=== PATIENT | male | born 1935 | race African-American/Black ===

== ENCOUNTER 2021-03-31 11:26 | Inpatient (IN) | payer MEDICARE ==
[2021-03-31 12:15] LABS: #Basophils 0.1 thou/uL (0.0-0.2); #Eosinphils 0.1 thou/uL (0.0-0.7); #Lymphocytes 1.5 thou/uL (1.20-3.40); #Monocytes 0.6 thou/uL (0.11-0.59); #Neutrophils 2.3 thou/uL (1.40-6.50); %Basophils 1.2 % (0.0-1.0); %Eosinophils 1.9 % (0.0-10.0); %Lymphocytes 32.6 % (21.0-51.0); %Monocytes 13.9 % (0.0-10.0); %Neutrophils 50.4 % (42.0-75.0); Hemoglobin 10.4 g/dL (14.0-18.0); Mean Corpuscular HGB CONC 34.2 g/dL (32.0-36.0); Mean Corpuscular Hemoglobin 30.9 pg (27.0-31.0); Mean Corpuscular Volume 90.3 fL (78.0-98.0); Platelet Count 160 thou/uL (130-400); RBC Distribution Width 13.2 % (11.5-14.5); Red Blood Cell (RBC) Count 3.38 mill/uL (4.70-6.10); White Blood Cell (WBC) Count 4.6 thou/uL (4.8-10.8)
[2021-03-31 12:33] LABS: ALT (SGPT) 11 U/L (8-55); AST (SGOT) 19 U/L (5-34); Albumin 3.8 g/dL (3.4-4.8); Alkaline Phosphatase 50 U/L (40-110); Anion Gap 14 mmol/L (10-20); BUN (Urea Nitrogen) 29 mg/dL (8.4-25.7); Bilirubin, Total 0.7 mg/dL (0.2-1.2); Calc. Creatinine Clearance 0 mL/min (70-130); Calcium 9.4 mg/dL (7.8-10.44); Carbon Dioxide 24 mmol/L (23-31); Chloride 105 mmol/L (98-107); Globulin 3.4 g/dL (2.4-3.5); Glucose 100 mg/dL (83-110); Potassium 3.7 mmol/L (3.5-5.1); Protein, Total 7.2 g/dL (5.8-8.1); Sodium 139 mmol/L (136-145)
[2021-03-31] MEDS ORDERED: Ondansetron PF 4 MG/2 ML Vial IVP PRN (14:11)
[2021-03-31 17:47] VITALS: BMI 30.2
[2021-03-31 18:26] LABS: Troponin I 0.015 ng/mL (< 0.028)
[2021-03-31 19:08] LABS: Bacteria/HPF None Seen HPF (None Seen); Bilirubin Negative (Negative); Blood, Urine Negative (Negative); Clarity Clear (Clear); Glucose, Urine (Dipstick) Normal (Negative); Ketone, Urine Negative (Negative); Leukocyte Negative Leu/uL (Negative); Nitrite Negative (Negative); Protein, Urine (Dipstick) Negative (Neg-Trace); RBC/HPF 0-3 HPF (0-3); Specific Gravity, Urine 1.016 (1.002-1.036); Squamous Epithelial None Seen HPF (0-3); WBC/HPF 0-3 HPF (0-3)
[2021-03-31 19:09] LABS: Urine Culture Reflex No No
[2021-03-31 19:16] LABS: Amphetamine Not Detected (NotDetected); Barbiturates Screen Not Detected (NotDetected); Benzodiazepine Screen Not Detected (NotDetected); Cocaine Metabolite Screen Not Detected (NotDetected); Medtox Control Line Valid? VALID (VALID); Medtox Reader # READER 4; Methadone Not Detected (NotDetected); Methamphetamine Not Detected (NotDetected); Opiate Screen Not Detected (NotDetected); Oxycodone Screen Not Detected (NotDetected); Phencyclidine (PCP) Not Detected (NotDetected); THC/Cannabinoid Screen Not Detected (NotDetected); Tricyclic Screen Not Detected (NotDetected)
[2021-03-31] MEDS ORDERED: Amlodipine 5 MG TAB PO SCH (19:30)
[2021-03-31] MEDS: Lisinopril 10 MG TAB PO SCH (21:50)
[2021-03-31 22:02] LABS: SARS-CoV-2 PCR by NAA Not Detected (NotDetected)
[2021-04-01 04:54] LABS: #Basophils 0.1 thou/uL (0.0-0.2); #Eosinphils 0.1 thou/uL (0.0-0.7); #Lymphocytes 1.6 thou/uL (1.20-3.40); #Monocytes 0.7 thou/uL (0.11-0.59); #Neutrophils 2.5 thou/uL (1.40-6.50); %Eosinophils 1.7 % (0.0-10.0); %Lymphocytes 32.4 % (21.0-51.0); %Monocytes 14.7 % (0.0-10.0); %Neutrophils 50.1 % (42.0-75.0); Hemoglobin 10.6 g/dL (14.0-18.0); Mean Corpuscular Volume 90.9 fL (78.0-98.0); Mean Platelet Volume 10.4 fL (7.4-10.4); Platelet Count 151 thou/uL (130-400); RBC Distribution Width 13.3 % (11.5-14.5); Red Blood Cell (RBC) Count 3.53 mill/uL (4.70-6.10); White Blood Cell (WBC) Count 4.9 thou/uL (4.8-10.8)
[2021-04-01 05:28] LABS: Anion Gap 11 mmol/L (10-20); BUN (Urea Nitrogen) 29 mg/dL (8.4-25.7); Calc. Creatinine Clearance 72 mL/min (70-130); Calcium 9.8 mg/dL (7.8-10.44); Carbon Dioxide 25 mmol/L (23-31); Chloride 107 mmol/L (98-107); Glucose 149 mg/dL (83-110); Potassium 3.7 mmol/L (3.5-5.1); Sodium 139 mmol/L (136-145)
[2021-04-01 08:29] LABS: Cardiac Risk 2.3 (Less than 4.5)
[2021-04-01] MEDS: Aspirin Chewable 81 MG TAB PO SCH (08:49)
[2021-04-01] MEDS: Amlodipine 5 MG TAB PO SCH (08:50)
[2021-04-01] MEDS: Lisinopril 10 MG TAB PO SCH ×2 (08:50→20:36)
[2021-04-01] MEDS: Allopurinol 300 MG TAB PO SCH (08:50)
[2021-04-01] MEDS ORDERED: Enoxaparin Sodium 40 MG/0.4 ML SYRINGE SC SCH (09:00)
[2021-04-01] MEDS: Rosuvastatin 10 MG TAB PO SCH (20:36)
[2021-04-02 05:08] LABS: Anion Gap 12 mmol/L (10-20); BUN (Urea Nitrogen) 23 mg/dL (8.4-25.7); Calc. Creatinine Clearance 75 mL/min (70-130); Calcium 9.3 mg/dL (7.8-10.44); Carbon Dioxide 24 mmol/L (23-31); Chloride 106 mmol/L (98-107); Glucose 179 mg/dL (83-110); Hemoglobin 10.5 g/dL (14.0-18.0); Mean Corpuscular HGB CONC 33.4 g/dL (32.0-36.0); Mean Corpuscular Hemoglobin 30.4 pg (27.0-31.0); Mean Platelet Volume 10.2 fL (7.4-10.4); Platelet Count 146 thou/uL (130-400); Potassium 3.6 mmol/L (3.5-5.1); RBC Distribution Width 13.3 % (11.5-14.5); Red Blood Cell (RBC) Count 3.45 mill/uL (4.70-6.10); Sodium 138 mmol/L (136-145); White Blood Cell (WBC) Count 5.3 thou/uL (4.8-10.8)
[2021-04-02 06:04] LABS: Band 2 % (5-11); Eosinophils 2 % (0-10); Lymphocytes 14 % (21-51); MDiff Complete? YES; Monocytes 12 % (0-10); Neutrophil 70 % (42-75)
[2021-04-02] MEDS: Enoxaparin Sodium 40 MG/0.4 ML SYRINGE SC SCH (09:20)
[2021-04-02] MEDS: Allopurinol 300 MG TAB PO SCH (09:20)
[2021-04-02] MEDS: Amlodipine 5 MG TAB PO SCH (09:20)
[2021-04-02] MEDS: Lisinopril 10 MG TAB PO SCH ×2 (09:20→21:50)
[2021-04-02] MEDS: Aspirin Chewable 81 MG TAB PO SCH (09:20)
[2021-04-02] MEDS ORDERED: Magnesium Sulfate 4 GM in Sodium Chloride 0.9% 250 ML 250 ML IVPB SCH (16:45)
[2021-04-02] MEDS: Rosuvastatin 10 MG TAB PO SCH (21:50)
[2021-04-03 04:28] LABS: Hemoglobin 10.5 g/dL (14.0-18.0); Mean Corpuscular HGB CONC 32.7 g/dL (32.0-36.0); Mean Corpuscular Hemoglobin 29.8 pg (27.0-31.0); Mean Corpuscular Volume 91.1 fL (78.0-98.0); Platelet Count 146 thou/uL (130-400); RBC Distribution Width 13.3 % (11.5-14.5); Red Blood Cell (RBC) Count 3.52 mill/uL (4.70-6.10); White Blood Cell (WBC) Count 4.9 thou/uL (4.8-10.8)
[2021-04-03 04:43] LABS: Anion Gap 12 mmol/L (10-20); BUN (Urea Nitrogen) 18 mg/dL (8.4-25.7); Calc. Creatinine Clearance 81 mL/min (70-130); Calcium 9.3 mg/dL (7.8-10.44); Carbon Dioxide 24 mmol/L (23-31); Chloride 104 mmol/L (98-107); Glucose 141 mg/dL (83-110); Magnesium 1.8 mg/dL (1.6-2.6); Potassium 3.7 mmol/L (3.5-5.1); Sodium 136 mmol/L (136-145)
[2021-04-03 05:12] LABS: Band 1 % (5-11); Eosinophils 4 % (0-10); Lymphocytes 23 % (21-51); MDiff Complete? YES; Monocytes 12 % (0-10); Neutrophil 59 % (42-75); Reactive Lymphocytes 1 % (0-10)
[2021-04-03] MEDS ORDERED: Magnesium 2 GM/50 ML 2 GM in Premix Bag 1 BAG IVPB SCH (07:15)
[2021-04-03] MEDS: Enoxaparin Sodium 40 MG/0.4 ML SYRINGE SC SCH (10:02)
[2021-04-03] MEDS: Lisinopril 10 MG TAB PO SCH ×2 (10:02→20:49)
[2021-04-03] MEDS: Allopurinol 300 MG TAB PO SCH (10:02)
[2021-04-03] MEDS: Potassium Chloride 20 MEQ TAB PO SCH ×2 (10:02→16:42)
[2021-04-03] MEDS: Amlodipine 5 MG TAB PO SCH (10:02)
[2021-04-03] MEDS: Aspirin Chewable 81 MG TAB PO SCH (10:02)
[2021-04-03] MEDS: Rosuvastatin 10 MG TAB PO SCH (20:49)
[2021-04-03] MEDS ORDERED: Enoxaparin Sodium 40 MG/0.4 ML SYRINGE SC SCH (23:00)
[2021-04-04] MEDS ORDERED: CEFAZOLIN 2 GM in Premix Bag 1 BAG IVPB SCH (04:00)
[2021-04-04] MEDS: Amlodipine 5 MG TAB PO SCH (08:28)
[2021-04-04] MEDS: Lisinopril 10 MG TAB PO SCH ×2 (08:28→20:30)
[2021-04-04] MEDS: Aspirin Chewable 81 MG TAB PO SCH (08:29)
[2021-04-04] MEDS: Allopurinol 300 MG TAB PO SCH (08:29)
[2021-04-04] MEDS ORDERED: CEFAZOLIN 1 GM VIAL ONE (09:51)
[2021-04-04] MEDS ORDERED: Gentamicin 80 MG/2 ML VIAL ONE (09:51)
[2021-04-04] MEDS: Acetaminophen 325 MG TAB PO PRN ×3 (12:58→23:00)
[2021-04-04] MEDS ORDERED: Carvedilol 6.25 MG TAB PO SCH (13:00)
[2021-04-04] MEDS: Carvedilol 3.125 MG TAB PO SCH (17:00)
[2021-04-04] MEDS: Rosuvastatin 10 MG TAB PO SCH (20:30)
[2021-04-04] MEDS: Acetaminophen/Codeine 30-300mg Tablet PO PRN (20:35)
[2021-04-04] MEDS: Labetalol HCl 100 MG/20 ML VIAL SLOW IVP PRN (23:20)
[2021-04-05] MEDS: Acetaminophen/Codeine 30-300mg Tablet PO PRN ×2 (00:27→04:30)
[2021-04-05] MEDS: Labetalol HCl 100 MG/20 ML VIAL SLOW IVP PRN (04:29)
[2021-04-05] MEDS ORDERED: Chlorthalidone 25 MG TAB PO SCH (09:00)
[2021-04-05] MEDS ORDERED: Carvedilol 3.125 MG TAB PO SCH (09:07)
[2021-04-05] MEDS ORDERED: Lisinopril 10 MG TAB PO SCH (09:08)
[2021-04-05] MEDS ORDERED: Lisinopril 20 MG TAB PO SCH ×2 (09:15→21:00)
[2021-04-05] MEDS ORDERED: Carvedilol 6.25 MG TAB PO SCH ×2 (09:15→17:00)
[2021-04-05] MEDS: Aspirin Chewable 81 MG TAB PO SCH (09:24)
[2021-04-05] MEDS: Allopurinol 300 MG TAB PO SCH (09:24)
[2021-04-05] MEDS: Carvedilol 3.125 MG TAB PO SCH (09:37)
[2021-04-05] MEDS: Amlodipine 5 MG TAB PO SCH (09:37)
[2021-04-05] MEDS: Lisinopril 10 MG TAB PO SCH (09:37)
[2021-04-05 11:46] VITALS: TEMP 97.2
[2021-04-05 12:58] VITALS: BP 191/81
== END 2021-04-05 13:25 | disposition home or self-care (01) | DRG 243 ==
LOC: ERS 11:26 → ERHOLD 13:28 → 2NO 16:30
PROVIDERS: ADMIT Internal Medicine; ATTEND Internal Medicine
PROC: 4A023N8 Measurement of Cardiac Sampling and Pressure, Bilateral, Percutaneous Approach (ICD-10-PCS; principal; 2021-04-04)
PROC: 0JH606Z Insertion of Pacemaker, Dual Chamber into Chest Subcutaneous Tissue and Fascia, Open Approach (ICD-10-PCS; 2021-04-04)
PROC: 02HK3JZ Insertion of Pacemaker Lead into Right Ventricle, Percutaneous Approach (ICD-10-PCS; 2021-04-04)
PROC: 02H63JZ Insertion of Pacemaker Lead into Right Atrium, Percutaneous Approach (ICD-10-PCS; 2021-04-04)
DX: I49.5 Sick sinus syndrome (principal); G93.40 Encephalopathy, unspecified; I10 Essential (primary) hypertension; E78.5 Hyperlipidemia, unspecified; I25.10 Atherosclerotic heart disease of native coronary artery without angina pectoris; E83.42 Hypomagnesemia; M10.9 Gout, unspecified; E87.6 Hypokalemia; E66.9 Obesity, unspecified; D53.9 Nutritional anemia, unspecified; E11.69 Type 2 diabetes mellitus with other specified complication; D72.819 Decreased white blood cell count, unspecified; Z68.30 Body mass index [BMI] 30.0-30.9, adult; Z82.49 Family history of ischemic heart disease and other diseases of the circulatory system; Z79.82 Long term (current) use of aspirin
CPT/HCPCS: 33208; 36415; 70450; 71045; 80048; 80053; 80061; 80306; 81001; 82607; 82728; 82746; 83540; 83550; 83735; 84443; 84484; 85025; 87635; 93005; 93010; 93306; 93798; C1785; C1898; J0690; J1580; J1650; J3475; J7050; U0003; U0005

== ENCOUNTER 2024-12-23 13:04 | Outpatient (CLI) | payer MEDICARE | END 2024-12-23 13:05 | disposition home or self-care (01) | LOC: BICRAD 13:04 | PROVIDERS: ATTEND Family Medicine | DX: R05.2 Subacute cough (principal); J18.1 Lobar pneumonia, unspecified organism; I51.7 Cardiomegaly | CPT/HCPCS: 71046 ==

== ENCOUNTER 2024-12-23 13:53 | Outpatient (CLI) | payer MEDICARE ==
[2024-12-23 15:31] LABS: #Basophils Less than 0.03 10x3/uL (0.0-0.2); %Basophils 0.4 % (0.0-1.0); %Eosinophils 0.6 % (0.0-10.0); %Lymphocytes 13.3 % (21.0-51.0); %Monocytes 10.3 % (0.0-10.0); %Neutrophils 75.2 % (42.0-75.0); Hematocrit 30.3 % (42.0-52.0); Mean Corpuscular Volume 84.9 fL (78.0-98.0); Platelet Count 262 10x3/uL (130-400); RBC Distribution Width 16.5 % (11.5-14.5); Red Blood Cell (RBC) Count 3.57 mill/uL (4.70-6.10)
[2024-12-23 15:50] LABS: Anion Gap 14 mmol/L (10-20); BUN (Urea Nitrogen) 20 mg/dL (8.4-25.7); Calc. Creatinine Clearance 0 mL/min (70-130); Calcium 9.8 mg/dL (7.8-10.44); Carbon Dioxide 20 mmol/L (23-31); Chloride 110 mmol/L (98-107); Estimated GFR 52; Glucose 120 mg/dL (83-110); Potassium 4.5 mmol/L (3.5-5.1); Sodium 139 mmol/L (136-145)
== END 2024-12-23 13:54 | disposition home or self-care (01) ==
LOC: LABBT 13:53
PROVIDERS: ATTEND Internal Medicine Cardiovascular Disease
DX: Z01.812 Encounter for preprocedural laboratory examination (principal); I48.19 Other persistent atrial fibrillation
CPT/HCPCS: 80048; 85025

== ENCOUNTER 2025-06-06 16:14 | Emergency (ER) | payer MEDICARE ==
[2025-06-06 17:26] LABS: #Basophils 0.03 10x3/uL (0.0-0.2); #Eosinophils 0.13 10x3/uL (0.0-0.7); #Monocytes 0.56 10x3/uL (0.11-0.59); #Neutrophils 2.14 10x3/uL (1.40-6.50); %Basophils 0.8 % (0.0-1.0); %Eosinophils 3.6 % (0.0-10.0); %Lymphocytes 20.9 % (21.0-51.0); %Monocytes 15.4 % (0.0-10.0); %Neutrophils 59.0 % (42.0-75.0); Hematocrit 28.6 % (42.0-52.0); Hemoglobin 9.5 g/dL (14.0-18.0); Mean Corpuscular Hemoglobin 29.0 pg (27.0-31.0); Mean Corpuscular Volume 87.2 fL (78.0-98.0); Platelet Count 196 10x3/uL (130-400); Red Blood Cell (RBC) Count 3.28 mill/uL (4.70-6.10); White Blood Cell (WBC) Count 3.63 10x3/uL (4.8-10.8)
[2025-06-06] MEDS ORDERED: Aspirin Chewable 81 MG TAB ONE (17:29)
[2025-06-06 17:53] LABS: Bacteria/HPF None Seen HPF (None Seen); CAUTI Indications for Culture Pelvic or flank pain; Glucose, Urine (Dipstick) Normal (Negative); Leukocyte Negative Leu/uL (Negative); Protein, Urine (Dipstick) Negative (Neg-Trace); RBC/HPF None Seen HPF (0-3); Specific Gravity, Urine 1.011 (1.002-1.036); WBC/HPF 0-3 HPF (0-3)
[2025-06-06 17:54] LABS: ALT (SGPT) 15 U/L (Less than 45); AST (SGOT) 35 U/L (11-34); Albumin 3.4 g/dL (3.1-4.5); Alkaline Phosphatase 65 U/L (40-110); Anion Gap 14 mmol/L (10-20); BUN (Urea Nitrogen) 22 mg/dL (8.4-25.7); Bilirubin, Total 0.4 mg/dL (0.3-1.2); Calc. Creatinine Clearance 0 mL/min (70-130); Calcium 9.1 mg/dL (7.8-10.44); Carbon Dioxide 19 mmol/L (23-31); Chloride 108 mmol/L (98-107); Globulin 4.2 g/dL (2.4-3.5); Glucose 115 mg/dL (83-110); Magnesium 1.7 mg/dL (1.6-2.6); Potassium 5.0 mmol/L (3.5-5.1); Sodium 136 mmol/L (136-145)
[2025-06-06 17:59] LABS: Urine Culture Reflex No No
[2025-06-06 17:59] LABS: Troponin I 0.011 ng/mL (< 0.028)
== END 2025-06-06 19:09 | disposition home or self-care (01) ==
LOC: ERS 16:14
DX: R68.84 Jaw pain (principal); I10 Essential (primary) hypertension; E78.5 Hyperlipidemia, unspecified; Z79.899 Other long term (current) drug therapy; Z79.01 Long term (current) use of anticoagulants; Z95.0 Presence of cardiac pacemaker
CPT/HCPCS: 71045; 80053; 81001; 83735; 83880; 84484; 85025; 93005; 94760

== ENCOUNTER 2025-07-31 10:46 | Outpatient (CLI) | payer MEDICARE | END 2025-07-31 10:47 | disposition home or self-care (01) | LOC: BICRAD 10:46 | PROVIDERS: ATTEND Family Medicine | DX: M54.2 Cervicalgia (principal); M47.812 Spondylosis without myelopathy or radiculopathy, cervical region | CPT/HCPCS: 72040 ==

== ENCOUNTER 2025-10-07 14:23 | Outpatient (CLI) | payer MEDICARE | END 2025-10-07 14:24 | disposition home or self-care (01) | LOC: BICRAD 14:23 | PROVIDERS: ATTEND Internal Medicine Hematology & Oncology | DX: D47.2 Monoclonal gammopathy (principal); M47.812 Spondylosis without myelopathy or radiculopathy, cervical region | CPT/HCPCS: 72040 ==